=== PATIENT | female | born 1970 | race Caucasian/White ===

== ENCOUNTER 2016-06-19 15:33 | Emergency (ER) | payer BC ==
[2016-06-19 15:53] VITALS: TEMP 98
[2016-06-19 17:04] LABS: BASO # 0.1 K/uL (0.0-0.2); BASO % 0.7 % (0.0-2.0); EOS % 0.5 % (0.0-4.0); HEMATOCRIT 37.5 % (34.0-47.0); LYMPH # 2.4 K/uL (1.0-4.3); LYMPH % 31.4 % (20.0-40.0); MEAN CELL VOLUME 92.8 fl (81.0-99.0); MEAN CORPUSCULAR HEMOGLOBIN 31.6 pg (27.0-31.0); MEAN PLATELET VOLUME 7.1 fl (7.2-11.7); MONO # 0.5 K/uL (0.0-0.8); NEUT # 4.7 K/uL (1.8-7.0); NEUT % 61.4 % (50.0-75.0); RED CELL DISTRIBUTION WIDTH 12.6 % (11.5-14.5); WHITE BLOOD COUNT 7.7 K/uL (4.8-10.8)
[2016-06-19 17:17] LABS: ALB/GLOB RATIO 1.2 (1.0-2.1); ALKALINE PHOSPHATASE 95 U/L (38-126); ALT/SGPT 27 U/L (9-52); AST/SGOT 22 U/L (14-36); BILIRUBIN,TOTAL 0.3 mg/dl (0.2-1.3); BLOOD UREA NITROGEN 12 mg/dl (7-17); CALCIUM 9.2 mg/dL (8.4-10.2); CARBON DIOXIDE 23 mmol/L (22-30); CHLORIDE 107 mmol/L (98-107); GFR AFRICAN-AMERICAN > 60; GLUCOSE,RANDOM 90 mg/dL (65-105); POTASSIUM 3.7 MMOL/L (3.6-5.0); SODIUM 141 mmol/l (132-148); TOTAL PROTEIN 7.3 G/DL (6.3-8.2)
[2016-06-19 17:27] VITALS: BP 131/86; RESP 19; O2SAT 100
--- NOTE | 2016-06-19 17:32 | ED PDOC ---
HPI: Chest Pain Time Seen by Provider: 06/19/16 15:52 Chief Complaint (Nursing): Chest Pain History Per: Patient Additional Complaint(s): Pt. states at 1100 today she developed burning in the middle of her chest which resolved spontaneously. States that at 1430 she developed L sided anterior chest pain and shortly after developed numbness to her L arm and pain non- radiating pain to the L upper back pain. Pt. states all symptoms have resolved since the incident. Currently without any pain, numbness, or tingling. Denies SOB, palpitations, leg pain, trauma, weakness, fever. Past Medical History Reviewed: Historical Data, Nursing Documentation, Vital Signs Vital Signs: Last Vital Signs Temp 98.0 F 06/19/16 15:51 Pulse 64 06/19/16 17:34 Resp 19 06/19/16 17:26 BP 131/86 06/19/16 17:26 Pulse Ox 100 06/19/16 17:34 - Family History Family History: States: No Known Family Hx Denies: MD, CAD - Home Medications Home Medications: Ambulatory Orders Medication Instructions Recorded No Known Home Med 06/19/16 - Allergies Allergies/Adverse Reactions: Allergies Allergy/AdvReac Type Severity Reaction Status Date / Time No Known Allergies Allergy Verified 06/19/16 15:50 LADY Risk Score for UA/NSTEMI - LADY Risk Score Age > 64: NO 3 or more CAD Risk Factors: NO Known CAD (Stenosis greater than 50%): NO Aspirin use in past 7 days: NO Severe Angina: NO EKG ST changes greater than 0.5mm: NO Positive Cardiac Marker: NO LADY Score: 0 Risk %: 5% Review of Systems Cardiovascular: Positive for: Chest Pain Physical Exam - Reviewed Nursing Documentation Reviewed: Yes Vital Signs Reviewed: Yes - Physical Exam Appears: Positive for: Well, Non-toxic, No Acute Distress Head Exam: Positive for: ATRAUMATIC, NORMAL INSPECTION, NORMOCEPHALIC Skin: Positive for: Normal Color, Warm. Negative for: Rash Eye Exam: Positive for: EOMI, Normal appearance, PERRL ENT: Positive for: Normal ENT Inspection Neck: Positive for: Normal, Painless ROM Cardiovascular/Chest: Positive for: Regular Rate, Rhythm Respiratory: Positive for: CNT, Normal Breath Sounds Gastrointestinal/Abdominal: Positive for: Normal Exam, Soft. Negative for: Tenderness Back: Positive for: Normal Inspection Extremity: Positive for: Normal ROM Neurologic/Psych: Positive for: Alert, Oriented - Laboratory Results Result Diagrams: 06/19/16 16:58 06/19/16 16:58 - ECG ECG: Positive for: Interpreted By Me ECG Rhythm: Positive for: Sinus Rhythm. Negative for: ST/T Changes Rate: 64 O2 Sat by Pulse Oximetry: 100 - Radiology X-Ray: Interpreted by Me (CXR) X-Ray Interpretation: No Acute Disease - Progress ED Course And Treament: Labs ordered. ASA PO chew given. CXR ordered. Re-evaluation Time: 18:46 (Still without chest pain or SOB. ) Condition: Re-examined, Unchanged Disposition - Clinical Impression Clinical Impression: Chest pain - Patient ED Disposition Is Patient to be Admitted: No - Disposition Disposition: Routine/Home Disposition Time: 18:47 Condition: STABLE Additional Instructions: Follow up with your market editor or neurologist in 2 days without fail. Instructions: Chest Pain (ED)
[2016-06-19 17:34] VITALS: PULSE 64
--- NOTE | 2016-06-20 10:02 | RAD ---
HISTORY: chest pain COMPARISON: No prior. TECHNIQUE: Chest PA and lateral FINDINGS: LUNGS: No active pulmonary disease. Note made of a small elliptical shaped nodular density within the anterior lower lung field seen on the lateral projection and probably represents vessel on end artifact. The possibility of a small parenchymal nodule or granuloma not excluded. Followup studies in 2 months could be performed to assess stability. PLEURA: No significant pleural effusion identified. No pneumothorax apparent. CARDIOVASCULAR: Normal. OSSEOUS STRUCTURES: No significant abnormalities. VISUALIZED UPPER ABDOMEN: Normal. OTHER FINDINGS: None. IMPRESSION: No active pulmonary disease. Note made of a small elliptical shaped nodular density within the anterior lower lung field seen on the lateral projection and probably represents vessel on end artifact. The possibility of a small parenchymal nodule or granuloma not excluded. Followup studies in 2 months could be performed to assess stability.
== END 2016-06-19 19:05 | disposition home or self-care (01) ==
LOC: H.ER 15:33
DX: R07.9 Chest pain, unspecified (principal); R20.0 Anesthesia of skin
CPT/HCPCS: 71020; 80053; 81025; 84484; 85025; 99282; G0480